=== PATIENT | male | born 1965 | race African-American/Black ===

== ENCOUNTER → 2020-12-22 13:10 | Outpatient (BNVA) | payer OTHER, SELFPAY | PROVIDERS: PCP Internal Medicine; Visit Provider Urology | DX: N52.9 Male erectile dysfunction, unspecified (principal) | CPT/HCPCS: 51798 ==

== ENCOUNTER → 2022-02-19 11:41 | Outpatient (BNVA) | payer OTHER, SELFPAY | PROVIDERS: PCP Internal Medicine; Visit Provider Urology | DX: N52.9 Male erectile dysfunction, unspecified (principal) | CPT/HCPCS: 51798 ==

== ENCOUNTER 2023-02-10 10:22 | Outpatient (REF) | payer OTHER, SELFPAY | END 2023-02-10 10:23 | disposition home or self-care (01) | LOC: HO.HMGCLDS 10:22 | PROVIDERS: PCP Internal Medicine; Visit Provider Urology | DX: N40.1 Benign prostatic hyperplasia with lower urinary tract symptoms (principal); N13.8 Other obstructive and reflux uropathy; N52.9 Male erectile dysfunction, unspecified; Z12.5 Encounter for screening for malignant neoplasm of prostate | CPT/HCPCS: 36415; 84153 ==

== ENCOUNTER 2023-03-04 11:15 | Outpatient (AMB) | payer OTHER, SELFPAY ==
--- NOTE | 2023-03-04 11:20 | A.OFFVIS_ITS ---
Intake Intake Visit Reasons: 1Y PSA(SET) Intake Note: Patient is present for Follow Up PSA Urology Med: Tadalafil Antibiotic Allergy:None Blood Thinner: None Allergies lisinopril Allergy (Unknown, Verified 03/04/23 11:20) Unknown shellfish Allergy (Unknown, Uncoded 03/04/23 11:20) Unknown Medication List - Last Reconciled 03/04/23 by Watson Galdamez MD albuterol sulfate 90 mcg/actuation 2 puffs inhalation QID PRN allopurinol mg PO atorvastatin 20 mg PO DAILY clindamycin phosphate 1% mL topical clindamycin phosphate 1% 1 appl topical DAILY fluocinonide 0.05% topical BID PRN fluticasone propionate 50 mcg/actuation sprays intranasal gabapentin 600 mg PO TID ketoconazole 2% topical BID PRN lidocaine 5% 1 patch topical DAILY methocarbamol 750 mg PO TID oxycodone-acetaminophen 5-325 mg 1 tab PO QID PRN sildenafil 100 mg PO DAILY PRN 30 days tadalafil 20 mg PO DAILY 30 days telmisartan 80 mg PO DAILY triamcinolone acetonide 0.1% 1 appl topical BID-TID HPI HPI Comments History of Present Illness Details Navin Prado is a very pleasant male. They are a patient of Dr. Mckee. They are seen in the office today for the following urologic conditions. - erectile dysfunction - lower urinary tract symptoms PSA low Continues with on demand tadalafil Refills provided Erectile dysfunction: Doing well with medications Refill with Cialis 20 mg Doing well with medication Discussed the end of the year at [facility] See in 12 months. PSA 03/02 0.15 Symptoms have been present for/since Several , years ago. Medications include(s) antihypertensive medication. Recent labs included 12/2011 a testosterone level 286, , a PSA (prostate- specific antigen) 0.2. Current symptoms include trouble getting an erection, trouble sustaining an erection. Severity of the symptoms is moderate MARLYS 22 with viagra [facility] Medical History Erectile dysfunction HTN (hypertension) OA (osteoarthritis) Obesity Surgical History History of carpal tunnel release History of surgery Review of Systems Const Denies chills and Denies fever(s) Card Reports no additional complaints and Denies syncope Resp Denies cough GI Denies abdominal pain and Denies heartburn Reports as per HPI and Denies change in libido Neuro Denies syncope Psych Denies change in libido Endo Denies change in libido Physical Exam Const General: cooperative, healthy appearing, comfortable and no acute distress Orientation/consciousness: patient oriented x3 HEENT Face and sinus: Yes normal facial exam Mouth: moist mucous membranes Neck Neck: Yes normal visual inspection, Yes full ROM and Yes trachea midline Chest Chest palpation & inspection: normal inspection of the chest Resp Effort & Inspection: normal respiratory effort, able to speak in complete sentences and no respiratory distress GI Inspection: Yes normal to inspection Back/Spine/Pelvis Cervical Spine: normal cervical lordosis Thoracic/Lumbar Spine: thoracic and lumbar spine normal to inspection Skin General skin exam: no rashes or lesions noted Neuro General: patient oriented x3, gait normal, tone normal and moves all extremities Extrem General: Yes normal to inspection and Yes capillary refill normal Assessment & Plan Assessment & Plan (1) Erectile dysfunction: Code(s): N52.9 - Male erectile dysfunction, unspecified Plan Refill meds Twelve month follow-up Medications: Refilled tadalafil 20 mg PO DAILY 30 tabs 5RF sexual activity 30 days N52.01 - Erectile dysfunction due to arterial insufficiency sildenafil administer 30 minutes to 4 hours before activity 100 mg PO DAILY PRN 4 tabs 11RF sexual activity 30 days Patient Instructions: Imaging studies, laboratory and physical exam results were discussed and reviewed in detail. No major barriers to patient understanding were identified. An opportunity to ask questions regarding the treatment plan was provided. All questions were answered. The patient expressed understanding and agreement with the above treatment plan. The patient is aware they should contact our office by phone for worsening of their current condition or the appearance of new urologic symptoms. Compliance is encouraged with any medications and followup testing that is ordered. It is a privilege to participate in the urologic care of your patient. If you have any questions or concerns regarding treatment for the above conditions, or other urologic issues, please do not hesitate to contact me. The office tele phone contact is [phone]. This note is constructed using voice recognition software. While every effort has been made to ensure accuracy network consultant errors may have been included. Yours sincerely, Dr Watson Galdamez MD, JOJO [facility] - Urology Providers of Expert, Compassionate Care for the Genitourinary System Coding Level of Care Code Est Pt Level 4 (17448) Diagnoses Erectile dysfunction N52.9
== END 2023-03-04 12:20 | disposition home or self-care (01) ==
PROVIDERS: Visit Provider Urology
DX: N52.9 Male erectile dysfunction, unspecified (principal)
CPT/HCPCS: 99213

== ENCOUNTER → 2023-03-04 11:15 | Outpatient (BNVA) | payer OTHER, SELFPAY | PROVIDERS: Visit Provider Urology ==

== ENCOUNTER 2024-03-04 09:31 | Outpatient (AMB) | payer OTHER, SELFPAY ==
--- NOTE | 2024-03-04 09:34 | MHC.OFFVIS ---
Intake Visit Reasons: 1Y Follow Up-Erectile Dys Intake Note: Patient is present for 1y Follow Up erectile dys Urology Med: Tadalafil, sildenafil Antibiotic Allergy:None Blood Thinner: None Manufacturing Machine Operator Required: No Allergies lisinopril Allergy (Unknown, Verified 03/04/24 09:35) Unknown shellfish Allergy (Unknown, Uncoded 03/04/24 09:35) Unknown HPI Comments Details: Navin Prado is a very pleasant male. They are a patient of Dr. Mckee. They are seen in the office today for the following urologic conditions. - erectile dysfunction - lower urinary tract symptoms Continues with on demand tadalafil Refills provided Erectile dysfunction: Doing well with medications Refill with Cialis 20 mg Doing well with medication Discussed the end of the year at [facility] in 12 months. PSA 03/02 0.15 Symptoms have been present for/since Several , years ago. Medications include(s) antihypertensive medication. Recent labs included 12/2011 a testosterone level 286, , a PSA (prostate-specific antigen) 0.2. Current symptoms include trouble getting an erection, trouble sustaining an erection. Severity of the symptoms is moderate MARLYS 22 with viagra PFSH Medical History Erectile dysfunction HTN (hypertension) OA (osteoarthritis) Obesity Surgical History History of carpal tunnel release History of surgery Review of Systems Const Denies chills and Denies fever(s) Card Reports no additional complaints and Denies syncope Resp Denies cough GI Denies abdominal pain and Denies heartburn Reports as per HPI and Denies change in libido Neuro Denies syncope Psych Denies change in libido Endo Denies change in libido Physical Exam Const General: cooperative, healthy appearing, comfortable and no acute distress Orientation/consciousness: patient oriented x3 HEENT Face and sinus: Yes normal facial exam Mouth: moist mucous membranes Neck Neck: Yes normal visual inspection, Yes full ROM and Yes trachea midline Chest Chest palpation & inspection: normal inspection of the chest Resp Effort & Inspection: normal respiratory effort, able to speak in complete sentences and no respiratory distress GI Inspection: Yes normal to inspection Back/Spine/Pelvis Cervical Spine: normal cervical lordosis Thoracic/Lumbar Spine: thoracic and lumbar spine normal to inspection Skin General skin exam: no rashes or lesions noted Neuro General: patient oriented x3, gait normal, tone normal and moves all extremities Extrem General: Yes normal to inspection and Yes capillary refill normal Results AMB Urinalysis, Automated UA Leukoctes 0 Cameron/uL Last Edit by ROXANN Murray on 03/04/24 09:43 UA Nitrite Negative Last Edit by ROXANN Murray on 03/04/24 09:43 UA Urobilinogen 0.2 mg/dL Last Edit by ROXANN Murray on 03/04/24 09:43 UA Protein 0 mg/dL Last Edit by ROXANN Murray on 03/04/24 09:43 UA pH 5.5 Last Edit by Neil Dai CCM on 03/04/24 09:43 UA Blood 0 Kailash/uL Last Edit by Neil Dai CCM on 03/04/24 09:43 UA Specific [place] 1.015 Last Edit by ROXANN Murray on 03/04/24 09:43 UA Ketone Negative Last Edit by ROXANN Murray on 03/04/24 09:43 UA Bilirubin 0 mg/dL Last Edit by ROXANN Murray on 03/04/24 09:43 UA Glucose 0 mg/dL Last Edit by ROXANN Murray on 03/04/24 09:43 Results Reviewed Results Reviewed: Laboratory Last Values Urine pH (Auto) 5.5 03/04/24 09:43 Specific [place] (Auto) 1.015 03/04/24 09:43 Urine Protein (Auto) 0 mg/dL 03/04/24 09:43 Glucose (UA)(Auto) 0 mg/dL 03/04/24 09:43 Urine Ketones (Auto) Negative 03/04/24 09:43 Urine Blood (Auto) 0 Kailash/uL 03/04/24 09:43 Urine Nitrite (Auto) Negative 03/04/24 09:43 Urine Bilirubin (Auto) 0 mg/dL 03/04/24 09:43 Urine Urobilinogen (Auto) 0.2 mg/dL 03/04/24 09:43 Leukocyte Esterase (Auto) 0 Cameron/uL 03/04/24 09:43 Assessment & Plan Assessment & Plan (1) Erectile dysfunction: Code(s): N52.9 - Male erectile dysfunction, unspecified Category: Medical Plan Twelve month follow-up Orders: Orders AMB Urinalysis Automated Today Z13.9 - Encounter for screening, unspecified Patient Instructions: Imaging studies, laboratory and physical exam results were discussed and reviewed in detail. No major barriers to patient understanding were identified. An opportunity to ask questions regarding the treatment plan was provided. All questions were answered. The patient expressed understanding and agreement with the above treatment plan. The patient is aware they should contact our office by phone for worsening of their current condition or the appearance of new urologic symptoms. Compliance is encouraged with any medications and followup testing that is ordered. It is a privilege to participate in the urologic care of your patient. If you have any questions or concerns regarding treatment for the above conditions, or other urologic issues, please do not hesitate to contact me. The office telephone contact is [phone]. This note is constructed using voice recognition software. While every effort has been made to ensure accuracy hunter guide errors may have been included. Yours sincerely, Dr Watson Galdamez MD, [facility] - Urology Providers of Expert, Compassionate Care for the Genitourinary System Coding Level of Care Code Est Pt Level 4 (23579) Diagnoses Erectile dysfunction N52.9
== END 2024-03-04 10:28 | disposition home or self-care (01) ==
PROVIDERS: PCP Internal Medicine; Visit Provider Urology
DX: N52.9 Male erectile dysfunction, unspecified (principal); Z13.9 Encounter for screening, unspecified
CPT/HCPCS: 99214

== ENCOUNTER → 2024-03-04 09:31 | Outpatient (BNVA) | payer OTHER, SELFPAY | PROVIDERS: PCP Internal Medicine; Visit Provider Urology | DX: N52.9 Male erectile dysfunction, unspecified (principal) | CPT/HCPCS: 81003 ==

== ENCOUNTER 2025-02-14 08:03 | Outpatient (REF) | payer OTHER, SELFPAY ==
--- OUTSIDE RECORDS SUMMARY | 2024-07-23 06:15 | XMS_ITS ---
Author Organization [facility] Address [address] [place] [address] Care Team Providers Care Driver License Technician Name Role Phone Rylee BENITEZ, Demetris Primary Care Provider Unavailab Rebecca Prajapati [phone] Encounters Encounter Location Date Provider Diagnosis [address] [address] 07/23/2024 Rebecca Batista Plan Of Treatment No Information Progress Notes * Navin FLORESDOB:[birth year] (59 yo M)Acc No.[id number]:07/23/2024 Progress Notes Patient: Navin MURCIA Provider: Johnson Batista DPM :1965 A ge:58 Y S ex:Male Date:07/23/2024 Address:[address] [place], [place] Pcp:Demetris Mckee MD Subjective: * Chief Complaints: [...] 09/23/2023 Generated for Printi ng/Faxing/eTransmitting on: 0 02/14/2025 08:07 AM EDT
--- OUTSIDE RECORDS SUMMARY | 2025-02-14 08:07 | XMS_ITS | Clinical Summary ---
Author Organization [address] [facility] Address [address] [place] [address] Phone Care Team Providers Care Belt Fixer Name Role Phone Demetris Mckee MD Primary Care Provider [phone] Allergies Active Allergy Reactions Criticality Noted Date Comments Lisinopril 08/26/2006 cough Shellfish Derived Nausea And Vomiting 9 Medications lidocaine (LIDODERM) 5 % patch Place 1 Patch onto the skin every 24 hours. Apply for no more than 12 hours in any 24 hour period. 4 Active methocarbamoL (ROBAXIN) 750 mg tablet Take 1 Tablet by mouth 3 times daily. 4 Active EPINEPHrine (EpiPen 2-Italo) 0.3 mg/0.3 mL injection Inject 0.3 mg into the muscle as needed for Other (anaphylactic reaction). 2-pack. Fill with whichever brand is covered by insurance. 4 Active clindamycin (CLEOCIN T) 1 % external solution Apply sparingly once or twice daily to affected areas on face as needed 4 Active fluticasone propionate (FLONASE) 50 mcg/actuation nasal spray 2 Sprays by Nasal route daily. 3 Active meclizine (ANTIVERT) 12.5 mg tablet Take 1 tablet (12.5 mg total) by mouth 3 (three) times a day. 3 Active clobetasoL (TEMOVATE) 0.05 % ointment Apply to affected areas twice daily, as directed x 2 weeks only. Aviod use on face or skin folds. 2 Active ketoconazole (NIZORAL) 2 % shampoo Apply to trunk and scalp twice a day as needed for flares. 1 Active clindamycin phosphate 1 % gel, once daily APPLY TO FACE PUSTULES NIGHTLY 1 Active tadalafiL (CIALIS) 20 mg tablet TAKE 1 TABLET BY MOUTH ONCE DAILY, IF NEEDED FOR SEXUAL ACTIVITY. 1 Active triamcinolone (KENALOG) 0.1 % cream PLEASE SEE ATTACHED FOR DETAILED DIRECTIONS 1 Active sildenafiL (VIAGRA) 100 mg tablet TAKE 1 TABLET BY MOUTH EVERY DAY NEEDED DIRECTED ORALLY 30 DAYS 0 Active gabapentin (NEURONTIN) 600 mg tablet TAKE 1 TABLET BY MOUTH 3 TIMES DAILY 270 tablet 1 5 Active telmisartan (MICARDIS) 80 mg tablet TAKE 1 TABLET BY MOUTH DAILY 90 tablet 1 5 Active atorvastatin (LIPITOR) 20 mg tablet TAKE 1 TABLET BY MOUTH AT BEDTIME 90 tablet 1 5 Active cyclobenzaprine (FLEXERIL) 10 mg tablet Take 1 tablet (10 mg total) by mouth 3 (three) times a day. 4 Active oxyCODONE-aceta minophen (PERCOCET) 5-325 mg per tablet Take 1 tablet by mouth if needed. 5 Active fluocinonide (LIDEX) 0.05 % gel Apply topically 2 (two) times a day. 60 g 1 5 Active albuterol HFA (PROAIR HFA ; PROVENTIL HFA ; VENTOLIN HFA) 90 mcg/actuation inhaler Inhale 2 puffs by mouth every 4 (four) hours if needed for wheezing. 6.7 g 2 5 Active allopurinoL (ZYLOPRIM) 100 mg tablet TAKE 2 TABLETS BY MOUTH TWICE DAILY 360 tablet 1 5 Active Active Problems Problem Noted Date Diagnosed Date Mild intermittent asthma without complication Bilateral sciatica 07/14/2015 Erectile dysfunction 07/13/2012 Acne 12/06/2011 Wheezing 12/06/2011 Inclusion cyst 10/25/2010 Right knee pain 10/25/2010 Degeneration, intervertebral disc, lumbar 2007 Overview (07/14/2024): MRI + 08/2006 Essential hypertension, benign 12/20/2005 Gout, unspecified 12/05/2005 Overview (07/14/2024): MSU crystals seen in left wrist fluid 2004 On probenecid 2004- 2010,then allopurinol Morbid obesity ([facility] V24, [facility] V28) 2005 Immunizations Name Administration Dates Next Due Influenza Quadravalent, MDCK , 0.5ml, preservative free (Flucelvax) 6mo and older 04/28/2019 Influenza Quadravalent, MDCK , 0.5ml, with preservative (Flucelvax) 6mo and older 05/28/2017 Influenza trivalent, 0.5mL ( Fluad) 65yo and older 05/22/2016,05/10/2015,05/31/2014,2012,06/11/2012,06/17/2011,06/19/2010,1 09/17/2005 Influenza trivalent, 0.5mL, preservative free (Fluarix; FluLaval; Fluzone) ages 6mo and older (Afluria) 3 years and older 05/07/2022,04/30/2020,04/23/2018,2006 Influenza, Unspecified 05/01/2024,2022,05/10/2021,2019,04/28/2019 Pfizer (ages 12 & older) Biv alent, COVID-19 05/07/2022 Pfizer SARS-CoV-2 COVID-19, mRNA, LNP-S, preservative free 05/01/2024,07/12/2021 Tdap Tetanus diptheria acell ular pertussis (Boostrix; Adacel) 7yo and older 05/28/2017,03/12/2007 Zoster recombinant (Shingrix ) 19yo and older 01/10/2020,10/03/2019 Surgical History Surgery Date Site/Laterality Comments OTHER SURGICAL HISTORY Left, 11/2007 PROCEDURE: AK ARTHRS KNE SURG W/MENISCECTOMY MED/LAT W/SHVG; COMMENT: Dr. Trejo OTHER SURGICAL HISTORY Left -1995 PROCEDURE: AK REPAIR PRIMARY OPEN/PRQ RUPTURED ACHILLES TENDON WISDOM TOOTH EXTRACTION age 19 PROCEDURE: HISTORICAL WISDOM TEETH EXTRACTION; COMMENT: x2, no excess bleeding. Dr. Chang SHOULDER SURGERY 03/28/15 Dr Amador Left PROCEDURE: HISTORICAL SHOULDER SURGERY; COMMENT: rotator cuff surgery LIPOMA RESECTION 01/22/2021 Right PROCEDURE: SKIN TISSUE EXCISION(LIPOMA); COMMENT: right lower mandible lipoma excision - Dr. Rolando Lanza Medical History Medical History Date Comments Lumbago 12/05/2005 DX:Lumbago Morbid obesity (CMS/HCC V24, CMS/HCC V28) 12/05/2005 DX:Morbid obesity (HCC) Essential hypertension, benign 12/20/2005 D X:Essential hypertension, benign Gout, unspecified 12/05/2005 DX:Gout, unspe cified; COMMENT: MSU crystals seen in left wrist fluid 2004 Degeneration, intervertebral disc, lumbar 08/20/2007 DX:Degeneration, interverteb ral disc, lumbar; COMMENT: MRI + 08/2006 Inclusion cyst 10/25/2010 DX:Inclusion cys t Acne 12/06/2011 DX:Acne Shellfish allergy 03/18/2014 DX:Shellfish a llergy Family history of colonic polyps 11/14/2016 DX:Family history of colonic polyps Family History Medical History Relation Name Comments Coronary artery disease Maternal Grandfather Heart failure Maternal Grandfather Autoimmune disease Neg Hx Breast cancer Neg Hx Colon cancer Neg Hx Diabetes Neg Hx Heart attack Neg Hx Hyperlipidemia Neg Hx Hypertension Neg Hx Mental illness Neg Hx Prostate cancer Neg Hx Sleep apnea Neg Hx Thyroid disease Neg Hx Relation Name Status Comments Brother Alive half brother 5 yrs older, HTN Father (Age 77) Smoker, Anila ng [place] Maternal Grandfather Maternal Grandmother Breast cancer Mother Alive Diabetes, HTN, Glaucoma Paternal Grandfather Paternal Grandmother Social History Tobacco Use Types Packs/Day Years Used Date Smoking Tobacco: Never Smokeless Tobacco: Never Alcohol Use Standard Drinks/Week Comments Yes 0 (1 standard drink = 0.6 oz pur e alcohol) Housing Instability Answer Date Recorde d Are you worried that in the next 2 months you may not have stable housing? No 09/21/2024 Food Access & Nutrition Answer Date Rec orded Do you have access to a vari ety of food including fruits and vegetables? Yes 09/21/2024 Access to Healthcare Answer Date Record ed Within the last 3 months, ho w many times did you visit the emergency department for your medical care? 0 09/21/2024 Health Literacy Answer Date Recorded How often do you need to hav e someone help you when you read instructions, pamphlets, or other written material from your doctor or pharmacy? Never 09/21/2024 Caregiver: How often do you need to have someone help you when you read instructions, pamphlets, or other written material from your doctor or pharmacy? Not on file 09/21/2024 Financial Risk Answer Date Recorded How hard is it for you to pa y for the very basics like food, housing, medical care, and air conditioning / heating? Not very hard 09/21/2024 Transportation Answer Date Recorded Has the lack of transportati on kept you from meetings, work, or from getting things needed for daily living? No Has the lack of transportati on kept you from medical appointments or from getting medications? No 09/21/2024 Social Isolation Answer Date Recorded How often do you feel lonely or isolated from th ose around you? Rarely 09/21/2024 Food Risk Answer Date Recorded Within the past 12 months we worried whether our food would run out before we got money to buy more. Never true 09/21/2024 Within the past 12 months th e food we bought just didn't last and we didn't have money to get more. Never true 09/21/2024 Dependent Care Answer Date Recorded Do you need help finding or paying for care for your loved ones. For example, child welfare specialist or elderly care for an older adult? No 09/21/2024 Education Answer Date Recorded Do you think completing more education or training, like finishing a GED, going to college, or learning a trade, would be helpful for you? No 09/21/2024 Employment and Income Answer Date Recor ded During the last four weeks, have you been actively looking for work? No 09/21/2024 Living Situation Answer Date Recorded What is your living situation? 0 09/21/2024 Sex and Gender Information Value Date Recorded Sex Assigned at Male 06/12/2024 1:46 PM EDT Legal Sex Male 10:09 AM EST Gender Identity Male 06/12/2024 1:46 PM EDT Sexual Orientation Straight 06/12/2024 1: 46 PM EDT Obstetrics History Last Filed Vital Signs Vital Sign Reading Time Taken Comments Blood Pressure 116/69 10/25/2024 2:41 PM EDT Pulse 100 10/25/2024 2:41 PM EDT Temperature 36.1 C (97 F) 10/25/2024 2:41 PM EDT Respiratory Rate - - Oxygen Saturation 96% 10/25/2024 2:41 PM EDT Inhaled Oxygen Concentration - - Weight 139 kg (306 lb) 09/28/2024 9:12 AM EST Height 175.3 cm (5' 9 ) 09/28/2024 9:12 AM EST Body Mass Index 45.19 09/28/2024 9:12 AM EST Plan of Treatment Upcoming Encounters Date Type Department Care Team (Late st Contact Info) Description 03/29/2025 12:30 PM EDT Office Visit Internal Medicine - [address] [phone] Demetris cMkee MD [address] [place] [phone] Health Maintenance Due Date Last Done Comments Hepatitis B Vaccines (1 of 3 - 19+ 3-dose series) 1985 Pneumococcal Vaccine: 50+ Years (1 of 2 - PCV) 1985 Pneumococcal Vaccine: Pediatrics (0 to 5 Years) and At-Risk Patients (6 to 64 Years) (1 of 2 - PCV) 1985 HIV Screening 07/20/2022 COVID-19 Vaccine (2023- season) 2024 05/01/2024, 05/07/2022, 07/12/2021, Additional history exists Influenza Vaccine (#1) 2025 , 04/25/2023, 05/07/2022, Additional history exists Depression Screening 09/21/2025 09/21/2024 Social Influencers of Health Screening 09/21/2025 09/21/2024 Hypertension/CHF/CAD Annual BMP Blood Test 09/28/2025 09/28/2024, 04/01/2024, 04/01/2024 Colorectal Cancer Screening: Colonoscopy 02/04/2027 02/04/2017 DTaP,Tdap,and Td Vaccines (3 - Td or Tdap) 05/28/2027 05/28/2017, 03/12/2007 Cholesterol Screening (Lipid Panel) 09/28/2029 09/28/2024, 04/01/2024, 04/01/2024 Hepatitis C Screening Completed 10/24/2014 Zoster Vaccines Completed 01/10/2020, 10/03/2019 HIB Vaccines Aged Out No longer eligi ble based on patient's age to complete this topic HPV Vaccines Aged Out No longer eligi ble based on patient's age to complete this topic Hepatitis A Vaccines Aged Out No long er eligible based on patient's age to complete this topic IPV Vaccines Aged Out No longer eligi ble based on patient's age to complete this topic MMR Vaccines Aged Out No longer eligi ble based on patient's age to complete this topic Meningococcal ACWY Vaccine Aged Out N o longer eligible based on patient's age to complete this topic Meningococcal B Vaccine Aged Out No l onger eligible based on patient's age to complete this topic RSV Immunization Patients Under 20 months Aged Out No longer eligible based on patient's age to complete this topic Varicella Vaccines Aged Out No longer eligible based on patient's age to complete this topic Procedures Procedure Name Priority Date/Time Associated Diagnosis Comments BASIC METABOLIC PANEL Routine 09/28/2024 10:13 AM EST Essential hypertension, benign LIPID PANEL WITH REFLEX TO DIRECT LDL Routine 09/28/2024 10:13 AM EST Essential hypertension, benign COLONOSCOPY Routine 02/04/2017 HEPATITIS C SCREENING Routine 10/24/2014 from Last 3 Months or Most Recently Relevant to Health Maintenance Results * Lipid panel with reflex to direct LDL (09/28/2024 10:13 AM EST) Cholesterol 143 0 - 200 mg/dL LAB CHEMISTRY METHOD 09/28/2024 1:32 PM EST [facility] Triglycerides 58 0 - 150 mg/dL LAB CHEMISTRY METHOD 09/28/2024 1:32 PM [facility] HDL 64 >=40 mg/dL LAB CHEMISTRY METHOD 09/28/2024 1:32 PM [facility] LDL Calculated 67 0 - 100 mg/dL LAB CHEMISTRY METHOD 09/28/2024 1:32 PM [facility] VLDL Cholesterol Jet 11.6 mg/dL LAB CHEMISTRY METHOD 09/28/2024 1:32 PM [facility] Non HDL Chol. (LDL+VLDL) 79 <145 mg/dL LAB CHEMISTRY METHOD 09/28/2024 1:32 PM [facility] Chol/HDL Ratio 2.2 0.0 - 4.4 LAB CHEMISTRY METHOD 09/28/2024 1:32 PM [facility] Blood Venous blood specimen / Unknown Venipuncture / Unknown 09/28/2024 10:13 AM EST 09/28/2024 10:13 AM EST us Demetris Mckee MD LAB BLOOD ORDERABLES Final Res ult [facility] [address] [place] [address], * (ABNORMAL) Basic metabolic panel (09/28/2024 10:13 AM EST) Sodium 135 133 - 145 mmol/L LAB CHEMISTRY METHOD 09/28/2024 1:45 PM [facility] Potassium 4.7 3.5 - 5.5 mmol/L LAB CHEMISTRY METHOD 09/28/2024 1:45 PM [facility] Chloride 103 96 - 110 mmol/L LAB CHEMISTRY METHOD 09/28/2024 1:45 PM [facility] CO2 30 21 - 32 mmol/L LAB CHEMISTRY METHOD 09/28/2024 1:45 PM [facility] Anion Gap 2(L) 3 - 11 LAB CHEMISTRY METHOD 09/28/2024 1:45 PM EST [facility] Glucose 94 70 - 100 mg/dL LAB CHEMISTRY METHOD 09/28/2024 1:45 PM [facility] BUN 15 5 - 25 mg/dL LAB CHEMISTRY METHOD 09/28/2024 1:45 PM [facility] Creatinine 1.04 0.70 - 1.30 mg/dL LAB CHEMISTRY METHOD 09/28/2024 1:45 PM EST [facility] eGFR 83 >=60 mL/min/1. 73m2 LAB CHEMISTRY METHOD 09/28/2024 1:45 PM [facility] Comment:Calculation based on the Chronic Kidney Disease Epidemiology Collaboration (CKD-EPI) equation refit without adjustment for race. BUN/Creatinine Ratio 14.4 LAB CHEMISTRY METHOD 09/28/2024 1:45 PM [facility] Calcium 9.5 8.5 - 10.5 mg/dL LAB CHEMISTRY METHOD 09/28/2024 1:45 PM [facility] Blood Venous blood specimen / Unknown Venipuncture / Unknown 09/28/2024 10:13 AM EST 09/28/2024 10:13 AM EST Demetris Mckee MD LAB BLOOD ORDERABLES Final Res ult [facility] [address] [place] [address], * Colonoscopy (02/04/2017) Colonoscopy no interpretation , abstracted Anatomical Region Laterality Modality Other Heather Provider HEALTH MAINTENANCE Final Result * Hepatitis C Screening (10/24/2014) Pathologist [facility] Hepatitis C Screening abstracted Heather Guy MD HEALTH MAINTENANCE Final Result from Last 3 Months or Most Recently Relevant to Health Maintenance Insurance [facility] Care Teams Belt Fixer Relationship Specialty Start Date End Date Demetris Mckee MD [address] [place] [phone] PCP - General Internal Medicine 05/01/20
[2025-02-14 11:41] LABS: Prostate Specific Antigen 0.29 ng/mL (<0.05-4.0)
== END 2025-02-14 08:04 | disposition home or self-care (01) ==
LOC: HO.HMGCLDS 08:03
PROVIDERS: PCP Internal Medicine; Visit Provider Urology
DX: Z12.5 Encounter for screening for malignant neoplasm of prostate (principal)
CPT/HCPCS: 36415; 84153

== ENCOUNTER 2025-02-25 09:54 | Outpatient (AMB) | payer OTHER, SELFPAY ==
--- OUTSIDE RECORDS SUMMARY | 2024-07-23 06:15 | XMS_ITS ---
Author Organization [facility] Address [address] [place] [address] Care Team Providers Care Assistant Infant Teacher Name Role Phone Rylee BENITEZ, Demetris Primary Care Provider Unavailab Rebecca Prajapati [phone] Encounters Encounter Location Date Provider Diagnosis [address] [address] 07/23/2024 Rebecca Batista Plan Of Treatment No Information Progress Notes * Navin FLORESDOB:[birth year] (59 yo M)Acc No.[id number]:07/23/2024 Progress Notes Patient: Navin MURCIA Provider: Johnson Batista DPM :1965 A ge:58 Y S ex:Male Date:07/23/2024 Address:[address] [place], [place] Pcp:Demetris Mckee MD Subjective: * Chief Complaints: * * Medical History: Objective: * Vitals: Assessment: Plan: * Treatment: * Images: * The named appointment provid er may or may not be the originator of this progress note, and it is not deemed complete until electronically signed by the appointment provider. Sign off status: Pending * Provider: Johnson Batista DPM Date: 09/23/2023 Generated for Printi ng/Faxing/eTransmitting on: 0 02/25/2025 10:09 AM EDT
--- NOTE | 2025-02-25 10:08 | MHC.OFFVIS ---
Intake Visit Reasons: 1y/labs Intake Note: Patient is present for 1y Follow Up erectile dysfunction labs 02/14/25 PSA 0.29 Urology Med: Tadalafil, sildenafil,allopurinol Antibiotic Allergy:None Blood Thinner: None Thermite Welder Required: No Accompanied by: Self / Same As Patient Allergies lisinopril Allergy (Unknown, Verified 02/25/25 10:09) Unknown shellfish Allergy (Unknown, Uncoded 03/04/24 09:35) Unknown HPI Comments Details: Navin Prado is a very pleasant male. They are a patient of Dr. Mckee. They are seen in the office today for the following urologic conditions. - erectile dysfunction - lower urinary tract symptoms Continues with on demand tadalafil Refills provided Recent trip to [facility] Erectile dysfunction: Doing well with medications Refill with Cialis 20 mg Doing well with medication Discussed the end of the year at [facility] in 12 months. PSA 03/02 0.15, 03/04 0.3 Symptoms have been present for/since Several , years ago. Medications include(s) antihypertensive medication. Recent labs included 12/2011 a testosterone level 286, , a PSA (prostate-specific antigen) 0.2. Current symptoms include trouble getting an erection, trouble sustaining an erection. Severity of the symptoms is moderate MARLYS 22 with viagra PFSH Medical History Erectile dysfunction HTN (hypertension) OA (osteoarthritis) Obesity Surgical History History of carpal tunnel release History of surgery Review of Systems Const Denies chills and Denies fever(s) Card Reports no additional complaints and Denies syncope Resp Denies cough GI Denies abdominal pain and Denies heartburn Reports as per HPI and Denies change in libido Neuro Denies syncope Psych Denies change in libido Endo Denies change in libido Physical Exam Const General: cooperative, healthy appearing, comfortable and no acute distress Orientation/consciousness: patient oriented x3 HEENT Face and sinus: Yes normal facial exam Mouth: moist mucous membranes Neck Neck: Yes normal visual inspection, Yes full ROM and Yes trachea midline Chest Chest palpation & inspection: normal inspection of the chest Resp Effort & Inspection: normal respiratory effort, able to speak in complete sentences and no respiratory distress GI Inspection: Yes normal to inspection Back/Spine/Pelvis Cervical Spine: normal cervical lordosis Thoracic/Lumbar Spine: thoracic and lumbar spine normal to inspection Skin General skin exam: no rashes or lesions noted Neuro General: patient oriented x3, gait normal, tone normal and moves all extremities Extrem General: Yes normal to inspection and Yes capillary refill normal Assessment & Plan Assessment & Plan (1) Erectile dysfunction: Code(s): N52.9 - Male erectile dysfunction, unspecified Category: Medical Plan Twelve month follow-up Patient Instructions: This note is constructed using voice recognition software. While every effort has been made to ensure accuracy industrial maintenance repairer errors may have been included. Imaging studies, laboratory and physical exam results were discussed and reviewed in detail. No major barriers to patient understanding were identified. An opportunity to ask questions regarding the treatment plan was provided. All questions were answered. The patient expressed understanding and agreement with the above treatment plan. The patient is aware they should contact our office by phone for worsening of their current condition or the appearance of new urologic symptoms. Compliance is encouraged with any medications and followup testing that is ordered. It is a privilege to participate in the urologic care of your patient. If you have any questions or concerns regarding treatment for the above conditions, or other urologic issues, please do not hesitate to contact me. The office telephone contact is [phone]. Sincerely, Dr Watson Galdamez MD, [facility] - Urology Compassionate Specialist Care for the Genitourinary System Coding Level of Care Code Est Pt Level 4 (31117) Diagnoses Erectile dysfunction N52.9
--- OUTSIDE RECORDS SUMMARY | 2025-02-25 10:09 | XMS_ITS | Clinical Summary ---
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 Apply for no more than 12 hours in any 24 hour period. 06/09/20 24 Active methocarbamoL (ROBAXIN) 750 mg tablet Take 1 Tablet by mouth 3 times daily. 06/09/20 24 Active EPINEPHrine (EpiPen 2-Italo) 0.3 mg/0.3 mL injection Inject 0.3 mg into the muscle as needed for Other (anaphylactic reaction). 2-pack. Fill with whichever brand is covered by insurance. 02/04/20 24 Active clindamycin (CLEOCIN T) 1 % external solution Apply sparingly once or twice daily to affected areas on face as needed 09/29/19 24 Active fluticasone propionate (FLONASE) 50 mcg/actuation nasal spray 2 Sprays by Nasal route daily. 06/12/20 23 Active meclizine (ANTIVERT) 12.5 mg tablet Take 1 tablet (12.5 mg total) by mouth 3 (three) times a day. 06/06/20 23 Active clobetasoL (TEMOVATE) 0.05 % ointment Apply to affected areas twice daily, as directed x 2 weeks only. Aviod use on face or skin folds. 10/02/19 22 Active ketoconazole (NIZORAL) 2 % shampoo Apply to trunk and scalp twice a day as needed for flares. 07/21/20 21 Active clindamycin phosphate 1 % gel, once daily APPLY TO FACE PUSTULES NIGHTLY 02/06/20 21 Active tadalafiL (CIALIS) 20 mg tablet TAKE 1 TABLET BY MOUTH ONCE DAILY, IF NEEDED FOR SEXUAL ACTIVITY. 01/25/20 21 Active triamcinolone (KENALOG) 0.1 % cream PLEASE SEE ATTACHED FOR DETAILED DIRECTIONS 01/10/20 21 Active sildenafiL (VIAGRA) 100 mg tablet TAKE 1 TABLET BY MOUTH EVERY DAY NEEDED DIRECTED ORALLY 30 DAYS 07/18/20 Active gabapentin (NEURONTIN) 600 mg tablet TAKE 1 TABLET BY MOUTH 3 TIMES DAILY 270 tablet 1 08/23/19 25 Active cyclobenzaprin e (FLEXERIL) 10 mg tablet Take 1 tablet (10 mg total) by mouth 3 (three) times a day. 06/02/20 24 Active oxyCODONE-acet aminophen (PERCOCET) 5-325 mg per tablet Take 1 tablet by mouth if needed. 09/08/19 25 Active fluocinonide (LIDEX) 0.05 % gel Apply topically 2 (two) times a day. 60 g 1 09/28/19 25 Active albuterol HFA (PROAIR HFA ; PROVENTIL HFA ; VENTOLIN HFA) 90 mcg/actuation inhaler Inhale 2 puffs by mouth every 4 (four) hours if needed for wheezing. 6.7 g 2 09/28/19 25 Active allopurinoL (ZYLOPRIM) 100 mg tablet TAKE 2 TABLETS BY MOUTH TWICE DAILY 360 tablet 1 10/12/19 25 Active atorvastatin (LIPITOR) 20 mg tablet TAKE 1 TABLET BY MOUTH AT BEDTIME 90 tablet 1 02/22/20 25 Active telmisartan (MICARDIS) 80 mg tablet TAKE 1 TABLET BY MOUTH DAILY 90 tablet 1 02/22/20 25 Active telmisartan (MICARDIS) 80 mg tablet TAKE 1 TABLET BY MOUTH DAILY 90 tablet 1 08/23/19 25 025 Discontinued atorvastatin (LIPITOR) 20 mg tablet TAKE 1 TABLET BY MOUTH AT BEDTIME 90 tablet 1 08/23/19 25 025 Discontinued Active Problems Problem Noted Date Diagnosed Date Mild intermittent asthma without complication Bilateral sciatica 07/14/2015 Erectile dysfunction 07/13/2012 Acne 12/06/2011 Wheezing 12/06/2011 Inclusion cyst 10/25/2010 Right knee pain 10/25/2010 Degeneration, intervertebral disc, lumbar 2007 Overview (07/14/2024): MRI + 08/2006 Essential hypertension, benign 12/20/2005 Gout, unspecified 12/05/2005 Overview (07/14/2024): MSU crystals seen in left wrist fluid 2004 On probenecid 2004- 2010,then allopurinol Morbid obesity ([facility] V24, [facility] V28) 2005 Immunizations Name Administration Dates [...] Comments OTHER SURGICAL HISTORY Left, 11/2007 PROCEDURE: MT ARTHRS KNE SURG W/MENISCECTOMY MED/LAT W/SHVG; COMMENT: Dr. Trejo OTHER SURGICAL HISTORY Left -1995 PROCEDURE: MT REPAIR PRIMARY OPEN/PRQ RUPTURED ACHILLES TENDON WISDOM [...] (CMS/HCC V24, CMS/HCC V28) 12/05/2005 DX:Morbid obesity ([facility]) Essential hypertension, benign 12/20/2005 D X:Essential hypertension, [...] care for your loved ones. For example, children counselor or elderly care for an older adult? [...] PM EDT Office Visit Internal Medicine - [address] [phone] Demetris Mckee MD [address] [place] [id number] Health Maintenance Due Date Last Done Comments Hepatitis B Vaccines (1 of 3 - 19+ 3-dose series) 1985 Pneumococcal Vaccine: 50+ Years (1 of 2 - PCV) 1984 HIV Screening 07/20/2022 COVID-19 Vaccine ( season) 2024 05/01/2024, 05/07/2022, 07/12/2021, Additional history [...] Procedure Name Priority Date/Time Associated Diagnosis Comments EXTERNAL CLINICAL LAB 02/15/2025 BASIC METABOLIC PANEL Routine 09/28/2024 10:13 AM EST Essential hypertension, benign LIPID PANEL WITH REFLEX TO DIRECT LDL Routine 09/28/2024 10:13 AM EST Essential hypertension, benign COLONOSCOPY Routine 02/04/2017 HEPATITIS C SCREENING Routine 10/24/2014 from Last 3 Months or Most Recently Relevant to Health Maintenance Results * External clinical lab (02/15/2025) us Provider [facility] LAB BLOOD ORDERABLES Fin al Result * Lipid panel with reflex to direct LDL (09/28/2024 10:13 AM EST) Cholesterol 143 0 - 200 mg/dL LAB CHEMISTRY METHOD 09/28/2024 1:32 PM EST [facility] Triglycerides 58 0 - 150 mg/dL LAB CHEMISTRY METHOD 09/28/2024 1:32 PM EST [facility] HDL 64 >=40 mg/dL LAB CHEMISTRY METHOD 09/28/2024 1:32 PM EST [facility] LDL Calculated 67 0 - 100 mg/dL LAB CHEMISTRY METHOD 09/28/2024 1:32 PM [facility] VLDL Cholesterol Jet 11.6 mg/dL LAB CHEMISTRY METHOD 09/28/2024 1:32 PM [facility] Non HDL Chol. (LDL+VLDL) 79 <145 mg/dL LAB CHEMISTRY METHOD 09/28/2024 1:32 PM [facility] Chol/HDL Ratio 2.2 0.0 - 4.4 LAB CHEMISTRY METHOD 09/28/2024 1:32 PM [facility] Blood Venous blood specimen / Unknown Venipuncture / Unknown 09/28/2024 10:13 AM EST 09/28/2024 10:13 AM EST us Demetris Mckee MD LAB BLOOD ORDERABLES Final Res ult [facility] [address] [place] [address], * (ABNORMAL) Basic metabolic panel (09/28/2024 10:13 AM EST) Pathologist [facility] Sodium 135 133 - 145 mmol/L LAB CHEMISTRY METHOD 09/28/2024 1:45 PM EST [facility] Potassium 4.7 3.5 - 5.5 mmol/L LAB CHEMISTRY METHOD 09/28/2024 1:45 PM EST [facility] Chloride 103 96 - 110 mmol/L LAB CHEMISTRY METHOD 09/28/2024 1:45 PM [facility] CO2 30 21 - 32 mmol/L LAB CHEMISTRY METHOD 09/28/2024 1:45 PM [facility] Anion Gap 2(L) 3 - 11 LAB CHEMISTRY METHOD 09/28/2024 1:45 PM [facility] Glucose 94 70 - 100 mg/dL LAB CHEMISTRY METHOD 09/28/2024 1:45 PM [facility] BUN 15 5 - 25 mg/dL LAB CHEMISTRY METHOD 09/28/2024 1:45 PM [facility] Creatinine 1.04 0.70 - 1.30 mg/dL LAB CHEMISTRY METHOD 09/28/2024 1:45 PM [facility] eGFR 83 >=60 mL/min/1. 73m2 LAB CHEMISTRY METHOD 09/28/2024 1:45 PM [facility] Comment:Calculation based on the Chronic Kidney Disease Epidemiology Collaboration (CKD-EPI) equation refit without adjustment for race. BUN/Creatinine Ratio 14.4 LAB CHEMISTRY METHOD 09/28/2024 1:45 PM [facility] Calcium 9.5 8.5 - 10.5 mg/dL LAB CHEMISTRY METHOD 09/28/2024 1:45 PM [facility] Blood Venous blood specimen / Unknown Venipuncture / Unknown 09/28/2024 10:13 AM EST 09/28/2024 10:13 AM EST Demetris Mckee MD LAB BLOOD ORDERABLES Final Res ult [facility] [address] [place] [address], * Colonoscopy (02/04/2017) Colonoscopy no interpretation , abstracted Anatomical Region Laterality Modality Other Historical Provider HEALTH MAINTENANCE Final Result * Hepatitis C Screening (10/24/2014) Hepatitis C Screening abstracted us Historical Provider HEALTH MAINTENANCE Final Result from Last 3 Months or Most Recently Relevant to Health Maintenance Insurance [facility] Care Teams Draw Press Operator Relationship Specialty Start Date End Date Demetris Mckee MD [address] [place] [phone] PCP - General Internal Medicine 05/01/20
== END 2025-02-25 10:54 | disposition home or self-care (01) ==
LOC: HO.HUSH 09:54
PROVIDERS: PCP Internal Medicine; Visit Provider Urology
DX: N52.9 Male erectile dysfunction, unspecified (principal)
CPT/HCPCS: 99214